=== PATIENT | male | born 1980 | race Caucasian/White ===

== ENCOUNTER → 2016-08-06 | Outpatient (CLI) | payer BC ==
--- NOTE | 2016-08-06 18:42 | PN ---
DATE OF SERVICE: 08/06/2016 This patient is a 35-year-old gentleman who has been followed in the sleep center for treatment of extremely severe obstructive sleep apnea/hypopnea syndrome. I discussed results of the sleep studies with the patient in detail. Apnea-hypopnea index during diagnostic sleep study was 110 with oxygen desaturation to 80.4%. He is on treatment with CPAP at the pressure 15 cm of water. I checked his CPAP unit. Reading from his machine, patient is using equipment 100% of the time for more than 4 hours. Average usage is 6 hours and 29 minutes. Leak is only 1 L/minute. Apnea-hypopnea index with the machine for the whole month is 1.1. Patient sleeps better with the machine. No snoring. Feels better during the day. Previously he woke up up to 5 times with nocturia. At the present time he practically does not wake up; sometimes once. [place] Sleepiness Scale is 1. MEDICATIONS: Lisinopril. During physical exam, patient is in no distress. VITAL SIGNS: BP 138/78, HR 88, RR 16. Weight 360. Temperature 97.4. Oxygen saturation at room air 96%. HEENT: PERRLA, EOMI. Evaluation of oropharynx showed extremely low position of soft palate. NECK: Supple. No JVD. Thyroid is not palpable. LUNGS: Clear to percussion and to auscultation. Good air exchange. No wheezing or rhonchi. HEART: S1, S2 regular. No murmurs, gallops or rubs. ABDOMEN: Obese. EXTREMITIES: No clubbing or cyanosis. PICKER/PULLER: Awake, alert, and oriented x3. Cranial nerves 2 to 7 intact. There is no fasciculation or atrophy noted. No focal deficits observed. IMPRESSION: 1. Extremely severe obstructive sleep apnea/hypopnea syndrome; apnea-hypopnea index 110, controlled with CPAP at 15 cm of water. Patient demonstrated 100% compliance with treatment and is benefitting from treatment. 2. Obesity. 3. Hypertension. 4. Status post left eye surgery for cataract. 5. No swelling of the legs at the present time. Previously patient had that. PLAN: 1. Continue treatment with CPAP every night for the whole night. 2. Losing weight. 3. Sleep hygiene with regular time in bed for at least 8 hours. 4. No driving if feeling any sleepiness. 5. Follow-up visit in 10 months, which will be one year since the sleep study was done. Thank you very much for allowing me to participate in the management your patient. Sincerely, Victor Hugo Castle MD, PhD, FAASM. Diplomat of [employer] [employer], Sleep Medicine Board by [employer], [employer] [employer]
== END | disposition home or self-care (01) ==
LOC: SLEEP 14:42
PROVIDERS: ATTEND Internal Medicine
DX: G47.33 Obstructive sleep apnea (adult) (pediatric) (principal); E66.9 Obesity, unspecified; I10 Essential (primary) hypertension; Z98.890 Other specified postprocedural states; Z79.899 Other long term (current) drug therapy

== ENCOUNTER → 2017-09-02 | Outpatient (CLI) | payer BC ==
--- NOTE | 2017-09-02 15:57 | PN ---
PROGRESS NOTE DATE OF SERVICE: 09/02/2017 This patient is a 36-year-old gentleman who has been followed in the sleep center for treatment of obstructive sleep apnea-hypopnea syndrome. Patient has successfully continued to use his CPAP equipment every night for the whole night without significant problems related to mask or pressure. He does not snore. He denied any significant excessive daytime sleepiness. [place] Sleepiness Scale is 1. His medications are Lisinopril. I checked information from patient's CPAP unit for the last 3 months. Usage is 100% of the time and 98% of the time for more than 4 hours. Average usage is 5 hours and 50 minutes. CPAP pressure is 15 cm of water. Apnea-hypopnea index is 0.8 for the last 3 months, which is perfect. No significant leak from the mask. PHYSICAL EXAMINATION: GENERAL A pleasant gentleman without distress. VITAL SIGNS: BP 138/75, HR 77, RR 16, height 5 feet 8 inches, weight 363.2, BMI 55.1. Oxygen saturation at room air 95%. HEENT: PERRLA, EOMI. Evaluation of oropharynx showed tongue protrudes midline; extremely low position of soft palate. NECK: Supple. No JVD. Thyroid is not palpable. LUNGS: Clear to percussion and to auscultation. Good air exchange. No wheezing or rhonchi. HEART: S1, S2 regular. No murmurs, gallops or rubs. ABDOMEN: Obese. EXTREMITIES : No clubbing or cyanosis. MARKET CONSULTANT: Awake, alert, and oriented X3. Cranial nerves 2 to 7 intact. There is no fasciculation or atrophy. noted. No focal deficits observed. IMPRESSION: 1. Extremely severe obstructive sleep apnea-hypopnea syndrome; apnea-hypopnea index 110, controlled with CPAP at 15 cm of water. Patient demonstrated 100% compliance with treatment. 2. Obesity. Patient's weight is about the same as before, 363 pounds; one year ago 360 pounds. 3. Hypertension. 4. Status post left eye surgery for cataract. PLAN: 1. Continue usage of CPAP equipment every night for the whole night. 2. Losing weight. 3. Sleep hygiene with regular time in bed for at least 7-1/2 hours. 4. Precautions related to driving. No driving if feeling any sleepiness. Patient denied any significant excessive daytime sleepiness. He is aware about civil and criminal liability for unsafe driving. He is a commercial real estate associate. Thank you very much for allowing me to participate in the management of your patient. Sincerely, Victor Hugo Castle MD, PhD, FAASM Diplomat of [employer] [employer] Health Information Managers of [facility] [place] MMODL / DAVID: [id number] /
== END | disposition home or self-care (01) ==
LOC: SLEEP 14:26
PROVIDERS: ATTEND Internal Medicine
DX: G47.33 Obstructive sleep apnea (adult) (pediatric) (principal); E66.9 Obesity, unspecified; I10 Essential (primary) hypertension; Z68.43 Body mass index [BMI] 50.0-59.9, adult; Z99.89 Dependence on other enabling machines and devices; Z98.42 Cataract extraction status, left eye

== ENCOUNTER → 2018-09-29 | Outpatient (CLI) | payer BC ==
--- NOTE | 2018-09-29 17:22 | PN ---
PROGRESS NOTE DATE OF SERVICE: 09/29/2018 This patient is a 38-year-old gentleman who has been followed in Sleep Center for treatment of extremely severe obstructive sleep apnea-hypopnea syndrome. Results of sleep study in 2016 showed apnea-hypopnea index of 110.4 with oxygen desaturation to 80.4%. Since that time the patient has been on treatment with CPAP. He continues to use CPAP equipment every night for the whole night. No snoring with the machine. No problems related to the pressure, mask fitting or humidification. I checked the reading from his CPAP unit. For the last year, the patient used it 365/365 days, and in 359 days he used it for more than 4 hours. Average usage is 6 hours and 11 minutes. CPAP pressure is 15 cm of water. Apnea-hypopnea index is only 0.7, which is absolutely within normal range. Patient denied any excessive sleepiness. [place] Sleepiness Scale today is 2. MEDICATIONS: Lisinopril. PHYSICAL EXAMINATION: GENERAL: A pleasant patient in no distress. VITAL SIGNS: BP 154/72, HR 88, RR 16, height 5 feet 8 inches, weight 380 pounds, which is about 17 pounds more than during his previous visit one year ago. RR 16, body mass index 57.7, temperature 98.1, oxygen saturation at room air 96% HEENT: PERRLA, EOMI. Evaluation of oropharynx showed tongue protrudes midline. Extremely low position of soft palate. Mallampati IV. NECK: Supple. No JVD. Thyroid is not palpable. LUNGS: Clear to percussion and to auscultation. Good air exchange. No wheezing or rhonchi. HEART: S1, S2 regular. No murmurs, gallops or rubs. ABDOMEN: Obese. EXTREMITIES: No clubbing or cyanosis. SNOW TECHNICIAN: Awake, alert, and oriented X3. Cranial nerves 2 to 7 intact. There is no fasciculation or atrophy. noted. No focal deficits observed. IMPRESSION: 1. Severe obstructive sleep apnea-hypopnea syndrome. The patient demonstrated 100% compliance with treatment, benefitting from treatment; normal respiration according to reading from the patient's CPAP machine. 2. Obesity; body mass index 57.7. The patient's weight increased by 18 pounds compared to the previous visit one year ago. 3. Hypertension. 4. Status post left eye surgery for cataract. PLAN: 1. Patient will continue to use CPAP equipment every night for the whole night. 2. Aggressive losing weight program. 3. Sleep hygiene with regular time in bed for at least 8 hours. 4. Precautions related to driving. No driving if feeling any sleepiness. 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 He is aware about civil and criminal liability for unsafe driving. 5. Monitoring of blood pressure, adjustments of medication if necessary. Thank you very much for allowing me to participate in the management of your patient. Sincerely, Victor Hugo Castle MD, PhD, FAASM Diplomat of [employer] [employer] [employer] Apprentice Jockey of [facility] [place] MMODL / IJN: [id number] /
== END | disposition home or self-care (01) ==
LOC: SLEEP 14:24
PROVIDERS: ATTEND Internal Medicine
DX: G47.33 Obstructive sleep apnea (adult) (pediatric) (principal); E66.9 Obesity, unspecified; I10 Essential (primary) hypertension; Z99.89 Dependence on other enabling machines and devices; Z79.899 Other long term (current) drug therapy; Z68.43 Body mass index [BMI] 50.0-59.9, adult; Z98.890 Other specified postprocedural states; Z98.42 Cataract extraction status, left eye

== ENCOUNTER → 2018-12-29 | Outpatient (CLI) | payer BC ==
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
== END ==
LOC: SLEEP 14:36
PROVIDERS: ATTEND Internal Medicine
DX: G47.33 Obstructive sleep apnea (adult) (pediatric) (principal); E66.9 Obesity, unspecified; I10 Essential (primary) hypertension; Z68.43 Body mass index [BMI] 50.0-59.9, adult; Z98.890 Other specified postprocedural states; Z99.89 Dependence on other enabling machines and devices; Z79.899 Other long term (current) drug therapy

== ENCOUNTER 2019-01-18 07:04 | Outpatient (CLI) | payer BC ==
[2019-01-18 23:11] LABS: Urine Alcohol Negative (Negative); Urine Barbiturate Negative (Negative); Urine Cocaine Negative (Negative); Urine Methadone Negative (Negative); Urine Opiates Negative (Negative); Urine Phencyclidine Negative (Negative)
--- NOTE | 2019-01-19 13:12 | SLS ---
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 Checking his CPAP unit showed 100% compliance with treatment and normal respiration on treatment with CPAP with apnea- hypopnea index 0.7. This test was done for objective evaluation of patient's alertness during the day while on treatment with CPAP. The patient underwent a maintenance of wakefulness test which consisted of 4 trials, each trial 40 minutes. The patient did not fall asleep on any trial and passed the test. IMPRESSION: 1. Severe obstructive sleep apnea-hypopnea syndrome. Patient demonstrated 100% compliance with CPAP therapy and normal respiration while on treatment with CPAP. 2. Maintenance of wakefulness test confirmed normal alertness of the patient during the day.He passed the test. He never fell asleep during the test. PLAN: 1. The patient should continue to use CPAP equipment every night for the whole night. 2. Sleep hygiene with regular time in bed for at least 7-1/2 hours. 3. 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 No driving if feeling any sleepiness. The patient is aware of civil and criminal liability for unsafe driving. Thank you very much for allowing me to participate in the management of your patient. Sincerely, Victor Hugo Castle MD, PhD, FAASM Diplomat of [place] [employer] [employer] of [employer] Medicine [employer]ake Backboard Notcher [facility] [place] USAMA / DAVID: [id number] / MTDD
== END 2019-01-18 15:00 | disposition home or self-care (01) ==
LOC: SLEEP 07:04
PROVIDERS: ATTEND Internal Medicine
DX: G47.33 Obstructive sleep apnea (adult) (pediatric) (principal); Z99.89 Dependence on other enabling machines and devices
CPT/HCPCS: 80306; 95805